=== PATIENT | male | born 1955 | race Caucasian/White ===

== ENCOUNTER → 2017-03-28 | Day surgery (SDC) | payer OTHER ==
[~2017-03-28] VITALS: Ht 175.3 cm; Wt 79.4 kg
[~2017-03-28] MED LIST: 0.9% Sodium Chloride 1,000 ML IV PRN; ATOR20TA PO; FLUO10CA20 PO; OMEP20CA11 PO; OMEP20TA86 PO; Sodium Chloride LOK Flush 10 mL Syringe IV PRN; TRAZ-115 PO; fentaNYL-PF 50 mCg/mL 2 mL Inj IVPUSH PRN
[2017-03-28 09:11] VITALS: BP 139/88; PULSE 54; RESP 14; O2SAT 97
[2017-03-28 09:59] VITALS: BP 116/70; PULSE 59; RESP 11; O2SAT 96
[2017-03-28 10:10] VITALS: BP 113/67; PULSE 54; RESP 12; O2SAT 95
[2017-03-28 10:15] VITALS: BP 120/78; PULSE 62; RESP 12; O2SAT 96
--- NOTE | 2017-03-28 10:29 | ENDO ---
[address] [address] ENDOSCOPY PROCEDURE PATIENT: MICHELA KOWALSKI : 1955 MR#: [id number] ADMIT: 03/28/2017 JOB ID: [id number] PRIMARY PROVIDER: Prudencio Coombs MD PROCEDURE: Colonoscopy with cold forceps polypectomy. INDICATIONS: A 61-year-old male who reports for colon cancer screening. EQUIPMENT: [employer]. SEDATION: 4 mg Versed, 100 mcg fentanyl. COMPLICATIONS: None identified. BOWEL PREPARATION: Fair, adequate exam. PROCEDURE INFORMATION: After the risks and benefits were explained, written and verbal informed consent was obtained. The patient was brought into the endoscopy suite and placed in left lateral decubitus position. Sedation was achieved as above. A digital rectal examination accomplished. Mild internal hemorrhoids noted. The scope was introduced into the rectum and advanced to the cecum as identified by the appendiceal orifice and ileocecal valve. The scope was slowly withdrawn to carefully examine the mucosa for any defects or lesions. Retroflexed views were accomplished in the rectum. The colon was decompressed, the scope removed from the patient who tolerated the procedure well. FINDINGS: There was a diminutive polyp near the splenic flexure, removed with cold forceps. There was some mild diverticulosis in the left colon. Otherwise, no significant polyps, mass, lesions, or inflammatory features identified throughout, including retroflexed views from within the rectum. ENDOSCOPIC DIAGNOSES: 1. Diminutive colon polyp. 2. Diverticulosis. 3. Hemorrhoids. RECOMMENDATIONS: 1. Await histopathology. 2. If this polyp is adenomatous, repeat colonoscopy in five years. Otherwise, delay until 10 years of a lapse would be reasonable.
--- NOTE | 2017-03-29 14:32 | PATH ---
SURGICAL PATHOLOGY Attending Physician:Constance Torres CASE STATUS: Signed Out PATIENT NAME: MICHELA KOWALSKI PID: [id number] : 1955 DATE COLLECTED:03/28/2017 21:34 SPECIMEN: Colon, Polyp CLINICAL HISTORY: 1). SPLENIC FLEXTURE POLYP X1 FINAL DIAGNOSIS: Splenic Flexure Polyp, Biopsy: Portions of tubular adenoma x2; negative for high-grade dysplasia. ICD10: K63.5 GROSS DESCRIPTION: The specimen is received in one formalin filled container labeled with the patient's name, sublabeled "splenic flexure polyp" and consists of 2 tiny portions of tissue which aggregate to 0.2 x 0.2 x 0.1 CM. The specimen is entirely submitted in one cassette. 03/28/2017DC ICD-9 CODES: CPT CODES: 1: 21656 Electronically Signed Out Alexus Sánchez MD [facility] Pathology [facility] [address], [place] [address] Technical component performed at [facility], [facility] [address], [address]
== END | disposition home or self-care (01) ==
LOC: END 00:20
PROVIDERS: ATTEND Internal Medicine Gastroenterology
DX: Z12.11 Encounter for screening for malignant neoplasm of colon (principal); D12.3 Benign neoplasm of transverse colon; K57.30 Diverticulosis of large intestine without perforation or abscess without bleeding; K64.8 Other hemorrhoids; F41.9 Anxiety disorder, unspecified; F32.9 Major depressive disorder, single episode, unspecified; Z79.899 Other long term (current) drug therapy; Z87.891 Personal history of nicotine dependence
CPT/HCPCS: 45380; 99153; G0500; J2250; J3010; J7030